=== PATIENT | female | born 1960 | race Caucasian/White ===

== ENCOUNTER → 2017-03-28 | Outpatient (CLI) | payer MEDICAID | END | disposition home or self-care (01) | LOC: YCFC.O 07:28 | PROVIDERS: ATTEND Nurse Practitioner Family | DX: Z79.899 Other long term (current) drug therapy (principal); E78.2 Mixed hyperlipidemia; I10 Essential (primary) hypertension; M06.9 Rheumatoid arthritis, unspecified; R53.83 Other fatigue ==

== ENCOUNTER 2017-04-29 14:32 | Emergency (ER) | payer MEDICAID ==
[2017-04-29 15:20] VITALS: TEMP 98.3
--- NOTE | 2017-04-29 15:42 | ED.PDOC ---
History of Present Illness - General Chief Complaint: General Stated Complaint: righ shoulder pain Time Seen by Provider: 04/29/17 15:41 Source: patient, RN notes reviewed Exam Limitations: no limitations - History of Present Illness Initial Comments: Agustina Whitlock 56 y/o female stated that she over stretch her shoulder jumping into her bed 4 days ago.Denies neck or head injury.Has sharp pain on moving up right shoulder since incident. Timing/Duration: intermittent Severity: moderate Improving Factors: immobilization Worsening Factors: movement Associated Symptoms: denies symptoms Allergies/Adverse Reactions: Allergies NO KNOWN ALLERGY Allergy (Verified 04/29/17 15:20) Home Medications: Ambulatory Orders Atenolol & Chlorthalidone [Atenolol/Chlorthalidone 50-25 mg] 1 tab PO DAILY 01/08 Azathioprine [Imuran] 50 mg PO DAILY 02/28/15 Duloxetine HCl [Cymbalta] 60 mg PO DAILY 02/28/15 Hydroxychloroquine Sulfate [Hydroxychloroquine Sulfat] 200 mg PO DAILY 02/28/15 Letrozole 2.5 mg PO DAILY 02/28/15 Sucralfate Tab [Carafate Tab] 1 gm PO QID #30 tab 02/28/15 Tramadol HCl [Ultram] 50 mg PO Q6HR PRN #15 tab 02/28/15 Methocarbamol [Robaxin] 750 mg PO BID #14 tab 04/29/17 Tramadol HCl 50 mg PO Q4HR #20 tab 04/29/17 Review of Systems - Review of Systems Constitutional: States: no symptoms reported EENTM: States: no symptoms reported Respiratory: States: no symptoms reported Cardiology: States: no symptoms reported Gastrointestinal/Abdominal: States: no symptoms reported Genitourinary: States: no symptoms reported Musculoskeletal: States: see HPI Past Medical History (General) - Patient Medical History Hx Stroke: No Hx Congestive Heart Failure: No Hx Hypertension: Yes Hx Diabetes: No Hx Cancer: Yes - Left breast CA with METs to lymph nodes Hx MRSA: No Hx Other PMH: Yes - lupus Surgical History: other - left breast lumpectomy,hysterectomy - Vaccination History Hx Tetanus, Diphtheria Vaccination: No Hx Influenza Vaccination: Yes Hx Pneumococcal Vaccination: No - Social History Hx Tobacco Use: No Hx Alcohol Use: Yes - occasional Hx Substance Use: No Hx Substance Use Treatment: No Hx Depression: No Hx Physical Abuse: No Hx Emotional Abuse: No Hx Suspected Abuse: No - Activities of Daily Living Hospice Agency (if applicable):: None Family Medical History - Family History Mother Family History: No Known Living Status: Still Living Hx Family Stroke: Yes Hx Family Cancer: No Physical Exam - Physical Exam General Appearance: Alert, Comfortable, No apparent distress Eye Exam: bilateral normal Ears, Nose, Throat: hearing grossly normal, normal ENT inspection Neck: non-tender, full range of motion Respiratory: chest non-tender, lungs clear Cardiovascular/Chest: normal peripheral pulses, regular rate, rhythm, no murmur Peripheral Pulses: radial,right: 1+, radial,left: 1+ Gastrointestinal/Abdominal: normal bowel sounds, non tender, soft Back Exam: no vertebral tenderness Extremity: other - rom limited because of pain right shoulder on hyper extension and internal rotation Departure - Departure Clinical Impression: Strain of shoulder, right Qualifiers: Encounter type: initial encounter Qualified Code(s): S46.911A - Strain of unspecified muscle, fascia and tendon at shoulder and upper arm level, right arm , initial encounter Time of Disposition: 15:58 Disposition: Discharge to Home or Self Care Condition: Good Departure Forms: ED Discharge - Pt. Copy, Patient Portal Self Enrollment Instructions: Shoulder Sprain, DI for Shoulder Sprain Referrals: Ramila Lal NP [Family Provider] - 1-2 Weeks Prescriptions: Tramadol HCl 50 mg PO Q4HR #20 tab Methocarbamol [Robaxin] 750 mg PO BID #14 tab Home Medications: Ambulatory Orders Atenolol & Chlorthalidone [Atenolol/Chlorthalidone 50-25 mg] 1 tab PO DAILY 01/08 Azathioprine [Imuran] 50 mg PO DAILY 02/28/15 Duloxetine HCl [Cymbalta] 60 mg PO DAILY 02/28/15 Hydroxychloroquine Sulfate [Hydroxychloroquine Sulfat] 200 mg PO DAILY 02/28/15 Letrozole 2.5 mg PO DAILY 02/28/15 Sucralfate Tab [Carafate Tab] 1 gm PO QID #30 tab 02/28/15 Tramadol HCl [Ultram] 50 mg PO Q6HR PRN #15 tab 02/28/15 Methocarbamol [Robaxin] 750 mg PO BID #14 tab 04/29/17 Tramadol HCl 50 mg PO Q4HR #20 tab 04/29/17 Additional Instructions: Follow up with primary md in one week call for appointment
[2017-04-29] MEDS ORDERED: ORPHENADRINE CITRATE 30 MG/ML AMP IM PRN (16:03)
[2017-04-29] MEDS ORDERED: KETOROLAC TROMETHAMINE INJ 30 MG/ML VIAL IM ONE (16:03)
[2017-04-29 16:41] VITALS: BP 128/84; O2SAT 95
== END 2017-04-29 16:41 | disposition home or self-care (01) ==
LOC: ER 14:32
DX: S46.911A Strain of unspecified muscle, fascia and tendon at shoulder and upper arm level, right arm, initial encounter (principal); I10 Essential (primary) hypertension; Z85.3 Personal history of malignant neoplasm of breast; Z85.89 Personal history of malignant neoplasm of other organs and systems
CPT/HCPCS: J1885; J2360

== ENCOUNTER → 2017-05-30 | Outpatient (CLI) | payer MEDICAID ==
--- NOTE | 2017-05-31 15:12 | RAD ---
EXAM DESCRIPTION: Shoulder,Right 2 or More Views CLINICAL HISTORY: 56 years,Female,PAIN IN RIGHT SHOULDER COMPARISON: None FINDINGS: The right shoulder demonstrates no evidence of fractures or dislocations or acute abnormalities. The acromial clavicular joint large superior place osteophyte. The included lung do are unremarkable. There is no significant lateral down sloping of the acromion with no significant narrowing of the supraspinatus outlet. Some subchondral sclerosis demonstrated on the lateral humeral head IMPRESSION: No significant narrowing of the supraspinatus outlet of the right shoulder but there is subchondral sclerosis laterally which can be seen in chronic impingement. Moderate right AC joint arthritis with a large superior osteophyte Electronically signed by: Kulwinder Medina MD 05/31/2017 3:11 PM CDT
== END | disposition home or self-care (01) ==
LOC: RAD 08:06
PROVIDERS: ATTEND Orthopaedic Surgery
DX: M25.511 Pain in right shoulder (principal)

== ENCOUNTER → 2017-10-03 | Outpatient (CLI) | payer OTHER | LOC: YCFC.O 13:45 | PROVIDERS: ATTEND Nurse Practitioner Family | DX: I10 Essential (primary) hypertension (principal); E78.2 Mixed hyperlipidemia ==

== ENCOUNTER → 2017-10-09 | Outpatient (CLI) | payer OTHER ==
--- NOTE | 2017-10-09 13:58 | RAD ---
EXAM DESCRIPTION: Chest,2 Views CLINICAL HISTORY: ATYPICAL CHEST PAIN COMPARISON: January 07, 2013 FINDINGS: Two-view chest x-ray shows cardiomediastinal silhouette and pulmonary vasculature to be within normal limits. The lungs are normally aerated and clear. Costophrenic angles are sharp. Mild disc degenerative changes of the spine are seen. Surgical clips in the left axilla are again noted. IMPRESSION: No radiographic evidence of acute cardiopulmonary disease. Electronically signed by: Raymond Boston MD 10/09/2017 1:58 PM [facility]
== END ==
LOC: YCFC.O 13:18
PROVIDERS: ATTEND Nurse Practitioner Family
DX: R07.89 Other chest pain (principal)

== ENCOUNTER → 2017-12-21 | Outpatient (CLI) | payer OTHER ==
--- NOTE | 2017-12-22 12:07 | RAD ---
EXAM DESCRIPTION: Chest,2 Views CLINICAL HISTORY: RHEUMATOID ARTHRITIS COMPARISON: Previous study October 09, 2017 TECHNIQUE: PA/lateral FINDINGS: There is no acute appearing cardiac or pulmonary abnormality. Heart size is normal with normal pulmonary vascularity. No pleural effusion or pneumothorax. Lungs are clear with no consolidating infiltrate. Lateral view shows intact sternum and mild spurring in the T-spine. IMPRESSION: No acute process is identified in the chest. Electronically signed by: Jacob Morales MD 12/22/2017 12:05 PM CDT
--- NOTE | 2017-12-22 12:09 | RAD ---
EXAM DESCRIPTION: Foot,Right 3 Views CLINICAL HISTORY: 57 years, Female, RHEUMATOID ARTHRITIS COMPARISON: None TECHNIQUE: AP, lateral, and oblique views of the right foot FINDINGS: Metatarsus primus varus is noted with hallux valgus and advanced degenerative changes of the first metatarsal phalangeal joint. Mildly widened space between the bases of first and second metatarsals is noted with degenerative changes at the first metatarsal cuneiform joint. Osseous bunion deformity is noted. Cystic changes seen in the lateral aspect of the base of the proximal phalanx of the second digit, most likely benign. Lateral view shows intact talus and calcaneus. Prominent plantar calcaneal spur is present. There is no other bone, joint, or soft tissue abnormality observed. There is no radiopaque foreign body. IMPRESSION: Degenerative changes as described. Electronically signed by: Jacob Morales MD 12/22/2017 12:08 PM CDT
--- NOTE | 2017-12-22 12:11 | RAD ---
EXAM DESCRIPTION: Foot,Left 3 Views CLINICAL HISTORY: 57 years, Female, RHEUMATOID ARTHRITIS COMPARISON: None TECHNIQUE: AP, lateral, and oblique views of the left foot FINDINGS: Mild degenerative narrowing of the first metatarsal phalangeal joint is noted with whiskering periostitis of the base of the proximal phalanx of the great toe. No midfoot malalignment. Mildly prominent trabecular pattern. Lateral view shows intact talus and calcaneus. Mild degenerative spurring of the dorsal midfoot. Prominent plantar calcaneal enthesophyte. There is no radiopaque foreign body. IMPRESSION: Degenerative changes as described. Electronically signed by: Jacob Morales MD 12/22/2017 12:09 PM CDT
--- NOTE | 2017-12-22 12:12 | RAD ---
EXAM DESCRIPTION: Hand,Left 3 Views CLINICAL HISTORY: RHEUMATOID ARTHRITIS COMPARISON: None Available. TECHNIQUE: AP, LATERAL, AND OBLIQUE FINDINGS: Three-view left hand shows no fracture or dislocation. There is no bone lesion. Degenerative narrowing of the DIP joints of the fingers is noted especially second and fifth digits. Degenerative change at the interphalangeal joint of the thumb also noted. Small periarticular erosions are present. There is no radiopaque foreign body. IMPRESSION: Degenerative arthritic changes as described. Electronically signed by: Jacob Morales MD 12/22/2017 12:11 PM CDT
--- NOTE | 2017-12-22 12:13 | RAD ---
EXAM DESCRIPTION: Hand,Right 3 Views CLINICAL HISTORY: RHEUMATOID ARTHRITIS COMPARISON: None Available. TECHNIQUE: AP, LATERAL, AND OBLIQUE FINDINGS: Three-view right hand shows no fracture or dislocation. There is no bone lesion. Degenerative narrowing of the DIP joints of the fingers is seen with small periarticular erosions at the DIP joint of the index finger and PIP joint of the middle digit. This can be seen with gout. Advanced degenerative narrowing of the third intercarpal phalangeal joint is present. Degenerative changes are seen of the first metacarpal phalangeal joint and interphalangeal joint of the thumb. There is no radiopaque foreign body. IMPRESSION: Arthritic changes as described. Electronically signed by: Jacob Morales MD 12/22/2017 12:12 PM CDT
--- NOTE | 2017-12-22 12:15 | RAD ---
EXAM DESCRIPTION: Sacroiliac Joints CLINICAL HISTORY: 57 years Female, RHEUMATOID ARTHRITIS COMPARISON: None. TECHNIQUE: Frontal and oblique views of the SI joints FINDINGS: Oblique views show minimal degenerative sclerotic changes at the acromioclavicular joints. No joint space narrowing or erosions of the adjacent bone. Degenerative changes are seen at the pubic symphysis. Marked degenerative changes in the lower L-spine. Frontal view shows no evidence of sacral fracture. Facet degenerative changes are prominent at L5-S1. Sclerosis of the right SI joint is slightly greater than the left side. IMPRESSION: Degenerative changes at the SI joints and lower L-spine. Electronically signed by: Jacob Morales MD 12/22/2017 12:13 PM CDT
== END ==
LOC: RAD 15:28
PROVIDERS: ATTEND Nurse Practitioner Family
DX: M06.9 Rheumatoid arthritis, unspecified (principal)

== ENCOUNTER → 2018-05-01 | Outpatient (CLI) | payer OTHER | LOC: YCFC.O 08:16 | PROVIDERS: ATTEND Nurse Practitioner Family | DX: E78.2 Mixed hyperlipidemia (principal) ==

== ENCOUNTER 2018-06-05 08:26 | Emergency (ER) | payer OTHER ==
[2018-06-05 08:43] VITALS: TEMP 97.4
--- NOTE | 2018-06-05 08:54 | ED.PDOC ---
History of Present Illness - General Chief Complaint: Lower Extremity Injury Stated Complaint: S/P fall,right great toe injury Time Seen by Provider: 06/05/18 08:51 Source: patient Exam Limitations: no limitations - History of Present Illness Initial Comments: PT REPORTS PAIN TO THE RIGHT GREAT TOE AFTER TRIPPING AND FALLING YESTERDAY EVENING. PT REPORTS SHE IS HAVING DIFFICULTY AMBULATING DUE TO PAIN. Occurred: yesterday Pain - Lower Extremity: moderate: Right Foot Method of Injury: fell Improving Factors: immobilization Worsening Factors: movement Allergies/Adverse Reactions: Allergies NO KNOWN ALLERGY Allergy (Verified 04/29/17 15:20) Home Medications: Ambulatory Orders Atenolol & Chlorthalidone [Atenolol/Chlorthalidone 50-25 mg] 1 tab PO DAILY 01/08 Hydroxychloroquine Sulfate [Hydroxychloroquine Sulfat] 200 mg PO DAILY 02/28/15 Letrozole 2.5 mg PO DAILY 02/28/15 Bupropion HCl [Bupropion HCl Sr] 150 mg PO BID 06/05/18 Fenofibrate [Fenofibrate] 120 mg PO DAILY 06/05/18 Tramadol-Acetaminophen [Ultracet] 1 - 2 tab PO Q6HR PRN #30 tab 06/05/18 Review of Systems - Review of Systems Constitutional: Denies: chills, fever Cardiology: Denies: chest pain, palpitations, syncope Musculoskeletal: States: joint pain. Denies: muscle stiffness Neurological: Denies: headache, numbness Past Medical History (General) - Patient Medical History Hx Stroke: No Hx Congestive Heart Failure: No Hx Hypertension: Yes Hx Diabetes: No Hx Cancer: Yes - Breast Hx MRSA: No - Vaccination History Hx Tetanus, Diphtheria Vaccination: No Hx Influenza Vaccination: Yes Hx Pneumococcal Vaccination: No - Social History Hx Tobacco Use: Yes Hx Alcohol Use: Yes - occasional Hx Substance Use: No Hx Substance Use Treatment: No Hx Depression: No Hx Physical Abuse: No Hx Emotional Abuse: No Hx Suspected Abuse: No Family Medical History - Family History Mother Family History: No Known Living Status: Still Living Hx Family Stroke: Yes Hx Family Cancer: No Physical Exam - Physical Exam General Appearance: Alert, No apparent distress, Well Developed, Well Groomed, Well Hydrated Eyes, Ears, Nose, Throat: normal ENT inspection Neck: non-tender, normal inspection Cardiovascular/Respiratory: no respiratory distress Back: normal inspection Thigh/Hip: non-tender, no evidence of injury Leg: non-tender, no evidence of injury Knee: non-tender, no evidence of injury Ankle: non-tender, no evidence of injury Foot: bone tenderness - TO THE DISTAL GREAT TOE, ecchymosis - TO THE DISTAL GREAT TOE, soft tissue tenderness - TO THE DISTAL GREAT TOE Neuro/Tendon: normal sensation, normal motor functions Mental Status: alert, oriented x 3 Skin: normal color, warm/dry Progress - EKG/XRAY/CT XRAY: R FOOT- NO ACUTE FX, DISLOCATION Departure - Departure Clinical Impression: Contusion of right great toe without damage to nail, Sprain of great toe of right foot Time of Disposition: 09:23 Disposition: Discharge to Home or Self Care Condition: Good Departure Forms: ED Discharge - Pt. Copy, Patient Portal Self Enrollment Instructions: Toe Injury (DC) Referrals: Porsche Bojorquez, [employer] [Primary Care Provider] - 1 Week Prescriptions: Tramadol-Acetaminophen [Ultracet] 1 - 2 tab PO Q6HR PRN #30 tab PRN Reason: Pain Home Medications: Ambulatory Orders Atenolol & Chlorthalidone [Atenolol/Chlorthalidone 50-25 mg] 1 tab PO DAILY 01/08 Hydroxychloroquine Sulfate [Hydroxychloroquine Sulfat] 200 mg PO DAILY 02/28/15 Letrozole 2.5 mg PO DAILY 02/28/15 Bupropion HCl [Bupropion HCl Sr] 150 mg PO BID 06/05/18 Fenofibrate [Fenofibrate] 120 mg PO DAILY 06/05/18 Tramadol-Acetaminophen [Ultracet] 1 - 2 tab PO Q6HR PRN #30 tab 06/05/18
[2018-06-05] MEDS ORDERED: IBUPROFEN 200 MG TAB PO ONE (08:55)
[2018-06-05] MEDS ORDERED: traMADol 37.5MG/APAP 325MG 1 EA TAB PO ONE (08:56)
--- NOTE | 2018-06-05 09:08 | RAD ---
EXAM DESCRIPTION: Toes,Right CLINICAL HISTORY: pain,bruising COMPARISON: None IMPRESSION: 3 views of the right great toe. No fracture, dislocation or aggressive bone lesion is present. Hallux valgus is present 30 degrees angulation. Metatarsus primus varus 16 degrees. No erosions. No pathologic calcifications. No advanced osteoarthritis. Electronically signed by: Alfie Sun MD 06/05/2018 9:07 AM CDT
[2018-06-05 11:05] VITALS: BP 168/89; O2SAT 99
== END 2018-06-05 09:36 | disposition home or self-care (01) ==
LOC: ER 08:26
DX: S93.501A Unspecified sprain of right great toe, initial encounter (principal); I10 Essential (primary) hypertension; Z87.891 Personal history of nicotine dependence; Z85.3 Personal history of malignant neoplasm of breast; Z79.899 Other long term (current) drug therapy; W01.0XXA Fall on same level from slipping, tripping and stumbling without subsequent striking against object, initial encounter; Y92.9 Unspecified place or not applicable

== ENCOUNTER → 2018-07-17 | Outpatient (CLI) | payer OTHER ==
--- NOTE | 2018-07-21 15:24 | RAD ---
EXAM DESCRIPTION: Hand, left 3 Views: YASMEEN/ CLINICAL HISTORY: 57 years Female, M06.9 COMPARISON: Radiographs of the right hand on this visit and radiographs of the left hand 12/21/2017. TECHNIQUE/FINDINGS: 3 views AP lateral and oblique left hand. Decreased bone density. Minimal narrowing of the DIP joints of the fingers and DIP joint of the thumb. Small bone densities abutting some of the joint margins, also on the ulnar aspect of the index MCP joint. Stable since the prior study. No significant joint effusion. Minimal narrowing of the left radial scaphoid joint is stable. 3 mm negative ulnar variance, not well seen on the prior study. No abnormal radiodense objects in the soft tissues or joint spaces.. IMPRESSION: Minimal arthrosis in the DIP joints of the left fingers and the IP joint of the thumb. Also left index MCP joint. Decreased bone density. Minimal narrowing of the left radial scaphoid joint. Stable since the prior study. Electronically signed by: Tylor Hill MD 07/21/2018 3:23 PM [facility]
--- NOTE | 2018-07-21 15:36 | RAD ---
EXAM DESCRIPTION: Hand, right 3 Views: YASMEEN/ CLINICAL HISTORY: 57 years Female, M06.9 COMPARISON: Radiographs of the right wrist and hand 12/21/2017. Radiographs of the left wrist and hand on this visit. TECHNIQUE/FINDINGS: AP lateral and oblique images right wrist and hand. Intimal loss of bone density. Narrowing of the DIP joints of the right fingers in the IP joint of the thumb. Marginal spurs in the PIP joints of the right index and right middle finger. Joint effusion in the PIP joints and the MCP joints. Volar subluxation of the index finger and middle finger at the MCP joint. Joint space narrowing of the ring finger and little finger MCP joints and joint space narrowing and spur formation at the thumb MCP joint. There may be minimal narrowing of the carpometacarpal joints. IMPRESSION: Minimal loss of bone density in the right hand. Minimal to moderate arthrosis in the fingers with joint effusions or in the MCP joints compared to the DIP joints. Volar subluxation of the proximal phalanges at some of the metacarpophalangeal joints. No significant change compared to prior study in November 2017. Electronically signed by: Tylor Hill MD 07/21/2018 3:34 PM [facility]
--- NOTE | 2018-07-21 15:39 | RAD ---
EXAM DESCRIPTION: Hip,Left 2 Views: CR/DR/XR CLINICAL HISTORY: 57 years Female M06.9 COMPARISON: Radiographs of the contralateral right hip. TECHNIQUE: Two Views. FINDINGS: AP neutral and oblique images show joint space is symmetric. Normal bone density. No fracture or dislocation. No abnormal radiodense objects in the soft tissues or joint spaces. Minimal joint effusion. IMPRESSION: Minimal joint effusion left hip. No evidence of acute pulmonary or joint margin abnormality. Electronically signed by: Tylor Hill MD 07/21/2018 3:38 PM [facility]
--- NOTE | 2018-07-21 15:42 | RAD ---
EXAM DESCRIPTION: Hip, right 2 Views: CR/DR/XR CLINICAL HISTORY: 57 years Female M06.9 COMPARISON: Radiographs of the left hip and radiograph of the pelvis on the same visit. TECHNIQUE: Two Views. FINDINGS: AP neutral and oblique right hip. Joint space is preserved. No fracture or dislocation. Normal bone density. Basilar calcifications in the pelvis. No abnormal radiodense objects in the soft tissues or joint spaces. IMPRESSION: No radiographic evidence of acute bony or joint margin abnormality in the right hip. Electronically signed by: Tylor Hill MD 07/21/2018 3:41 PM [facility]
--- NOTE | 2018-07-21 16:13 | RAD ---
EXAM DESCRIPTION: Pelvis: CR/DR/XR CLINICAL HISTORY: M06.9 COMPARISON: SI joint and pelvis radiographs 12/21/2017. Bilateral hip radiographs on this visit. TECHNIQUE: One view AP FINDINGS: No fracture dislocation. Bone density heterogeneous. . Joints are symmetric. No abnormal radiodense objects in the soft tissues or joint spaces. IMPRESSION: No radiographic evidence of acute bony or joint margin abnormality. No significant arthrosis. Stable since prior AP pelvis in November 2017 Electronically signed by: Tylor Hill MD 07/21/2018 4:11 PM [facility]
--- NOTE | 2018-07-21 16:22 | RAD ---
EXAM DESCRIPTION: Foot,Right 3 Views: YASMEEN/ CLINICAL HISTORY: 57 years Female M06.9 COMPARISON: Radiographs of the right foot 12/21/2017. Radiographs of the left foot on this visit. TECHNIQUE: 3 VIEWS right foot. FINDINGS: AP lateral and oblique views. Moderate hallux valgus. Narrowing of the metacarpophalangeal joint space. Joint effusion. IP joint erosions on the great toe with soft tissue swelling/effusion. Minimal narrowing of the first tarsometatarsal joint. Stable soft tissue swelling on the lateral aspect of the fifth MTP joint. IMPRESSION: Moderate hallux valgus right foot with degenerative changes in the joint space. Arthrosis also in the great toe IP joint which has progressed since the prior study. No acute bony or joint margin abnormality right foot. Electronically signed by: Tylor Hill MD 07/21/2018 4:21 PM [facility]
--- NOTE | 2018-07-21 16:26 | RAD ---
EXAM DESCRIPTION: Foot,Left 3 Views: YASMEEN/ CLINICAL HISTORY: 57 years Female M06.9 COMPARISON: Radiographs of the left foot 12/21/2017. Radiographs of the right foot on this visit. TECHNIQUE: 3 VIEWS left foot. FINDINGS: AP lateral and oblique. No left hallux valgus, but small erosions and marginal spurs on the MTP joint. Minimal soft tissue swelling abutting this joint in the fifth MTP joint. Minimal narrowing of the first and fifth tarsometatarsal joints. 3 mm plantar calcaneal spur. Subtalar joints are unremarkable. IMPRESSION: No hallux valgus left, but mild arthrosis in the joint space. Minimal soft tissue swelling abutting the first and the fifth MTP joints. No acute bony or joint margin abnormality. Electronically signed by: Tylor Hill MD 07/21/2018 4:25 PM [facility]
== END ==
LOC: LAB.O 09:39
PROVIDERS: ATTEND Nurse Practitioner Family
DX: M06.9 Rheumatoid arthritis, unspecified (principal); M25.452 Effusion, left hip; M25.441 Effusion, right hand; S63.280A Dislocation of proximal interphalangeal joint of right index finger, initial encounter; S63.282A Dislocation of proximal interphalangeal joint of right middle finger, initial encounter

== ENCOUNTER 2019-02-10 11:37 | Emergency (ER) | payer OTHER ==
[2019-02-10] MEDS ORDERED: ALPRAZolam 0.25 MG TAB PO ONE (11:59)
[2019-02-10] MEDS ORDERED: ACETAMINOPHEN-CAFF-BUTALBITAL 1 EA TAB PO ONE (11:59)
--- NOTE | 2019-02-10 12:03 | ED.PDOC ---
History of Present Illness - General Chief Complaint: Blood Pressure Problem Stated Complaint: HIGH BLOOD PRESSURE Time Seen by Provider: 02/10/19 11:41 Source: patient Exam Limitations: no limitations - History of Present Illness Initial Comments: The patient is a 58-year-old female presenting to the emergency room secondary togetting mad this morning at work and having what appears to be an anxiety attack. She is concerned about her blood pressure which is only moderately elevated. She does now have a headache. No focal neurological changes. She is alert and oriented. She is obviously still very worked up. Timing/Duration: 4-6 hours Severity: moderate Improving Factors: nothing Worsening Factors: nothing Associated Symptoms: headaches Allergies/Adverse Reactions: Allergies NO KNOWN ALLERGY Allergy (Verified 04/29/17 15:20) Home Medications: Ambulatory Orders Hydroxychloroquine Sulfate [Hydroxychloroquine Sulfat] 200 mg PO DAILY 02/28/15 Letrozole 2.5 mg PO DAILY 02/28/15 Citalopram Hydrobromide [Citalopram] 20 mg PO DAILY 02/10/19 Simvastatin 20 mg PO DAILY 02/10/19 Review of Systems - Review of Systems Constitutional: States: no symptoms reported EENTM: States: no symptoms reported Respiratory: States: no symptoms reported Cardiology: States: no symptoms reported Gastrointestinal/Abdominal: States: no symptoms reported Genitourinary: States: no symptoms reported Musculoskeletal: States: no symptoms reported Skin: States: no symptoms reported Neurological: States: headache Endocrine: States: no symptoms reported All other Systems: No Change from Baseline Past Medical History (General) - Patient Medical History Hx Seizures: No Hx Stroke: No Hx Cardiac Disorders: No Hx Congestive Heart Failure: No Hx Hypertension: Yes Hx Diabetes: No Hx Cancer: Yes - Breast Hx MRSA: No Surgical History: other - Vaccination History Hx Tetanus, Diphtheria Vaccination: No Hx Influenza Vaccination: Yes Hx Pneumococcal Vaccination: No - Social History Hx Tobacco Use: Yes Hx Alcohol Use: Yes - occasional Hx Substance Use: No Hx Substance Use Treatment: No Hx Depression: No Hx Physical Abuse: No Hx Emotional Abuse: No Hx Suspected Abuse: No Family Medical History - Family History Mother Family History: No Known Living Status: Still Living Hx Family Stroke: Yes Hx Family Cancer: No Physical Exam - Physical Exam General Appearance: Alert, Anxious Eye Exam: bilateral normal Ears, Nose, Throat: hearing grossly normal, normal ENT inspection Neck: full range of motion, supple Respiratory: lungs clear, normal breath sounds, no respiratory distress, no accessory muscle use Cardiovascular/Chest: normal peripheral pulses, regular rate, rhythm, no edema Peripheral Pulses: radial,right: 2+, radial,left: 2+, dorsalis pedis,right: 2+, dorsalis pedis,left: 2+ Gastrointestinal/Abdominal: non tender, soft Rectal Exam: deferred Back Exam: no CVA tenderness, no vertebral tenderness Extremity: non-tender, normal inspection, no pedal edema, normal capillary refill 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 Skin Exam: normal color Comments: Vital Signs - 8 hr 02/10/19 11:42 Temperature 98.0 F Pulse Rate [ 72 right brachial] Respiratory 20 Rate Blood Pressure 156/78 [right brachial ] O2 Sat by Pulse 99 Oximetry Progress - Progress Progress: 02/10/19 12:06 the patient is a 58-year-old female presenting to the emergency room due to concern over blood pressures which are only moderately elevated at this point. She can follow them over the next couple of days to make sure they return back down to normal. The patient was given a dose of medication for anxiety and for her tension headache. she needs to keep herself well hydrated. Keep routine follow-up with primary care doctor. ER warnings were given. Departure - Departure Clinical Impression: Anxiety, Tension headache Disposition: Discharge to Home or Self Care Condition: Fair Departure Forms: ED Discharge - Pt. Copy, Patient Portal Self Enrollment Instructions: Tension Headache (DC), Anxiety, Adult (DC) Diet: regular diet Activity: increase activity as tolerated Referrals: Porsche Bojorquez NP [Primary Care Provider] - 1-2 Weeks Home Medications: Ambulatory Orders Hydroxychloroquine Sulfate [Hydroxychloroquine Sulfat] 200 mg PO DAILY 02/28/15 Letrozole 2.5 mg PO DAILY 02/28/15 Citalopram Hydrobromide [Citalopram] 20 mg PO DAILY 02/10/19 Simvastatin 20 mg PO DAILY 02/10/19 Additional Instructions: the patient is a 58-year-old female presenting to the emergency room due to concern over blood pressures which are only moderately elevated at this point. She can follow them over the next couple of days to make sure they return back down to normal. The patient was given a dose of medication for anxiety and for her tension headache. she needs to keep herself well hydrated. Keep routine follow-up with primary care doctor. ER warnings were given.
[2019-02-10] MEDS ORDERED: ALPRAZolam 0.5 MG TAB ONE (12:04)
[2019-02-10 12:24] VITALS: BP 142/76; TEMP 97.3; O2SAT 100
== END 2019-02-10 12:25 | disposition home or self-care (01) ==
LOC: ER 11:37
DX: F41.9 Anxiety disorder, unspecified (principal); G44.209 Tension-type headache, unspecified, not intractable; I10 Essential (primary) hypertension; Z85.3 Personal history of malignant neoplasm of breast; Z87.891 Personal history of nicotine dependence; Z79.899 Other long term (current) drug therapy

== ENCOUNTER → 2019-03-07 | Outpatient (CLI) | payer OTHER ==
--- NOTE | 2019-03-10 12:15 | MAM ---
EXAM DESCRIPTION: 3D Screening BILATERAL : Digital Mammography. CLINICAL HISTORY: 58 years Female ANNUAL SCREENING . Personal history of breast cancer left breast 2008 with lumpectomy and radiation. No family history of breast cancer. No childbirth. Postmenopausal. No HRT. Sabianist inheritance.. Lifetime risk of developing breast cancer (Tyrer-Cuzick model)(%): Not calculated due to personal history of breast cancer. COMPARISON: 2-D digital screening bilateral mammography 11/10/2015. TECHNIQUE: Bilateral CC and MLO projection full-field images, digital tomosynthesis mammographic technique. Bilateral digital 2-D full-field MLO images. CAD not available for tomosynthesis or 2-D images. FINDINGS: The breast parenchymal density pattern is: Scattered areas of fibroglandular density. No skin thickening or nipple retraction. Architectural distortion in the posterior third of the upper outer quadrant of the right breast at previous site of cancer, lumpectomy and treatment. The soft tissue density at the center of the distortion has decreased in size since the prior study. No new focal, stellate mass or density, focal asymmetry , and no suspicious microcalcifications bilaterally. Stable mammograms compared to prior study. Taking into account, differences in mammographic technique. IMPRESSION: Benign exam. BIRAD CATEGORY: 2 BENIGN FINDINGS. RECOMMENDATIONS: FOLLOW UP: Routine digital bilateral mammographic screening, one year interval from February 2019. Written communication explaining the IMPRESSION and follow-up, will be mailed to the patient and referring health care provider. According to the [employer], yearly mammograms are recommended starting at age 40 and continuing as long as a woman is in good health. Any breast change noted on a breast self-exam should be reported promptly to the patient's healthcare provider. Breast MRI is recommended for women with an approximately 20-25% or greater lifetime risk of breast cancer, including women with a strong family history of breast or ovarian cancer and women who have been treated for Hodgkin's disease. A negative mammographic report should not delay tissue diagnosis in patients with significant clinical history or physical findings. Extremely dense breast tissue limits the sensitivity of digital mammography. Electronically signed by: Tylor Hill MD 03/10/2019 12:13 PM CDT
== END ==
LOC: MAMMO 09:30
PROVIDERS: ATTEND Internal Medicine Hematology & Oncology
DX: Z12.31 Encounter for screening mammogram for malignant neoplasm of breast (principal)

== ENCOUNTER → 2019-09-03 | Outpatient (CLI) | payer OTHER ==
--- NOTE | 2019-09-04 17:08 | MAM ---
EXAM DESCRIPTION: 3D Diagnostic, Bilateral: Digital Mammography CLINICAL HISTORY: 58 yearsFemale left breast cancer. 2008. No complaints. No family history of breast cancer. Menarche age 9. Childbirth. Menopausal age 48.. Lifetime risk of developing breast cancer (Tyrer-Cuzick model) percentage is not calculated due to personal history of breast cancer. COMPARISON: Bilateral screening digital breast tomosynthesis February 2019. TECHNIQUE: Bilateral CC and LM projection full-field images, digital mammographic tomosynthesis technique. Bilateral 2-D digital full-field MLO images. CC and LM projections. CAD not available. FINDINGS: The breast parenchymal density pattern is: Scattered areas of fibroglandular density. No skin thickening or nipple retraction potential distortion upper outer quadrant posterior third left breast associated with previous malignancy and treatment site. Mole marker and skin marker for biopsy site scar. No new focal, stellate mass or density, focal asymmetry , and no suspicious microcalcifications bilaterally. Stable mammograms compared to prior study, taking into account differences in mammographic technique IMPRESSION: Benign exam. BIRAD CATEGORY: 2 BENIGN FINDINGS. RECOMMENDATIONS: FOLLOW UP: Return to digital bilateral mammographic screening, after February 2019. Written communication explaining the IMPRESSION and follow-up, will be mailed to the patient and referring health care provider According to the [employer], yearly mammograms are recommended starting at age 40 and continuing as long as a woman is in good health. Any breast change noted on a breast self-exam should be reported promptly to the patient's healthcare provider. Breast MRI is recommended for women with an approximately 20-25% or greater lifetime risk of breast cancer, including women with a strong family history of breast or ovarian cancer and women who have been treated for Hodgkin's disease. A negative mammographic report should not delay tissue diagnosis in patients with significant clinical history or physical findings. Extremely dense breast tissue limits the sensitivity of digital mammography. Electronically signed by: Tylor Hill MD 09/04/2019 5:06 PM ORTHOPEDIC PHYSICIAN
== END ==
LOC: MAMMO 08:00
PROVIDERS: ATTEND Internal Medicine Hematology & Oncology
DX: C50.412 Malignant neoplasm of upper-outer quadrant of left female breast (principal)
CPT/HCPCS: 77066; G0279

== ENCOUNTER 2019-10-04 15:46 | Observation (INO) | payer OTHER ==
[2019-10-04] MEDS ORDERED: SODIUM CHLORIDE 0.9% (FLUSH) 10 ML SYG IV PRN (16:13)
[2019-10-04] MEDS ORDERED: ONDANSETRON INJ 4 MG/2 ML VIAL IV ONE (16:13)
[2019-10-04] MEDS ORDERED: MORPHINE SULFATE INJ 10 MG/ML VIAL IV ONE ×2 (16:13→17:31)
[2019-10-04] MEDS ORDERED: NITROGLYCERIN 2% 1 GM UD TOP ONE (16:15)
--- NOTE | 2019-10-04 16:48 | ED.PDOC ---
History of Present Illness - General Chief Complaint: Blood Pressure Problem Stated Complaint: high BP, and chest throbbing Time Seen by Provider: 10/04/19 16:13 Source: patient, RN notes reviewed, Vital Signs reviewed Exam Limitations: no limitations - History of Present Illness Initial Comments: Patient is a 59-year-old white female who presents with complaints of chest pressure. Her initial episode of this was 2 days ago. She was at work at the time and noted this onset of dull aching pressure in the left chest wall. There was no radiation. She became nauseated and diaphoretic. It resolved after approximately an hour but she did not feel back to her normal self for approximately 3 hours from onset. Today she was at work at the [employer] and noted onset of the same pressure-like pain. It was 5 out of 10. Lasted for approximately 2 to 3 minutes and resolved with rest. She has had multiple episodes of this, approximately 20, in the last 4 hours. Exertion seems to bring the pain on. The chest pain today did not radiate. It was moderate in intensity. Is recurrent and intermittent. Improves with rest. Today she has no nausea or diaphoresis. Timing/Duration: 4-6 hours Severity: moderate Location: substernal Activities at Onset: activity - Working at the [employer] Prior Chest Pain/Cardiac Workup: no prior cardiac workup Improving Factors: rest Worsening Factors: movement Nitro Today/Relief: no nitro taken today Aspirin Treatment Today: 325 mg x 1, provided at home Associated Symptoms: chest pain, diaphoresis, malaise, nausea/vomiting, weakness Allergies/Adverse Reactions: Allergies NO KNOWN ALLERGY Allergy (Verified 04/29/17 15:20) Home Medications: Ambulatory Orders Hydroxychloroquine Sulfate [Hydroxychloroquine Sulfat] 200 mg PO DAILY 02/28/15 Letrozole 2.5 mg PO DAILY 02/28/15 Citalopram Hydrobromide [Citalopram] 20 mg PO DAILY 02/10/19 Simvastatin 20 mg PO DAILY 02/10/19 Review of Systems - Review of Systems Constitutional: States: no symptoms reported, see HPI EENTM: States: no symptoms reported Respiratory: States: no symptoms reported, see HPI - No shortness of breath today. Cardiology: States: chest pain. Denies: palpitations, syncope Gastrointestinal/Abdominal: States: see HPI - No nausea or vomiting today. Additionally patient had no diaphoresis today. Genitourinary: States: no symptoms reported Musculoskeletal: States: no symptoms reported Skin: States: no symptoms reported Neurological: States: no symptoms reported Endocrine: States: no symptoms reported Hematologic/Lymphatic: States: no symptoms reported All other Systems: Reviewed and Negative Past Medical History (General) - Patient Medical History Hx Seizures: No Hx Stroke: No Hx Dementia: No Hx Asthma: No Hx of COPD: No Hx Cardiac Disorders: No Hx Congestive Heart Failure: No Hx Pacemaker: No Hx Hypertension: Yes Hx Thyroid Disease: No Hx Diabetes: No Hx Gastroesophageal Reflux: No Hx Renal Disease: No Hx Cancer: Yes - Breast CA, now in remission for 10 years Hx of HIV: No Hx Hepatitis C: No Hx MRSA: No Hx Other PMH: Yes - Rheumatoid arthritis and Sjogren's - Vaccination History Hx Tetanus, Diphtheria Vaccination: No Hx Influenza Vaccination: Yes Hx Pneumococcal Vaccination: No Immunizations Up to Date: No - Social History Hx Tobacco Use: Yes Hx Chewing Tobacco Use: No Hx Alcohol Use: Yes - 4-5 glasses of wine daily Hx Substance Use: No Hx Substance Use Treatment: No Hx Depression: No Feels Threatened In Home Enviroment: No Feels Threatened In a Relationship: No Hx Physical Abuse: No Hx Emotional Abuse: No Hx Suspected Abuse: No - Activities of Daily Living Hospice Agency (if applicable):: None - Female History Patient is a Female of Child Bearing Age (10 -59 yrs old): No - Triage Comment ED Triage Comment: pt noted to be anxious, and flushed to upper torso Family Medical History - Family History Mother Family History: No Known Living Status: Still Living Hx Family Stroke: Yes Hx Family Cancer: No Physical Exam - Physical Exam General Appearance: Alert, Anxious, Well Developed, Well Groomed, Well Hydrated, Well Nourished Eyes, Ears, Nose, Throat Exam: PERRL/EOMI, normal ENT inspection, pharynx normal Neck: non-tender, full range of motion, supple, normal inspection Respiratory: chest non-tender, lungs clear, normal breath sounds, no respiratory distress, no accessory muscle use Cardiovascular/Chest: normal peripheral pulses, regular rate, rhythm, no edema, no gallop, no JVD, no murmur Peripheral Pulses: radial,right: 2+, radial,left: 2+ Gastrointestinal/Abdominal: normal bowel sounds, non tender, soft, no organomegaly, no pulsatile mass Extremity: normal range of motion, non-tender, normal inspection 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 10/04/19 17:25 Patient's labs have returned and they are normal. Chest x-ray is unremarkable. Patient has a nondiagnostic EKG for chest pain. Patient has a heart score equal 4. This puts her at moderate risk for undifferentiated chest pain work- up. Plan on admission for further evaluation. I have discussed this plan of care with the patient and she voices understanding and agreement. I have discussed the plan of care with the hospitalist, Ayden Franco NP, and he agrees to admit the patient as she is not having active chest pain in the second set of cardiac enzymes negative. I will order second set of cardiac enzymes and get her admitted to the hospital. 10/04/19 19:08 Repeat cardiac enzymes are negative. Plan on admission at this time. - Results/Orders Results/Orders: 10/04/19 16:13 IV Care:Saline Lock per Protoc QSHIFT Telemetry ONCE Sodium Chloride 0.9% (Flush) [Saline Flush Syringe] 3 ml IV PRN PRN Oxygen Stat 10/04/19 16:15 EKG STAT 10/05/19 09:00 Pulse Ox Daily Laboratory Results - last 24 hr 10/04/19 16:13 WBC 8.9 RBC 4.22 Hgb 13.6 Hct 40.3 MCV 95.6 MCH 32.3 H MCHC 33.8 RDW 12.8 Plt Count 280 MPV 8.2 Absolute Neuts (auto) 7.80 H Absolute Lymphs (auto) 0.70 L Absolute Monos (auto) 0.30 Absolute Eos (auto) 0.10 Absolute Basos (auto) 0.00 Neutrophils % 87.7 H Lymphocytes % 7.7 L Monocytes % 3.3 Eosinophils % 1.0 Basophils % 0.3 PT 10.6 INR 1.07 PTT (SP) 23.4 Sodium 140 Potassium 5.3 H Chloride 103 Carbon Dioxide 28 Anion Gap 14.3 BUN 16 Creatinine 0.76 BUN/Creatinine Ratio 21.1 H Random Glucose 108 H Serum Osmolality 281.1 Calcium 10.1 Magnesium 1.9 Total Bilirubin 0.6 Direct Bilirubin < 0.1 Indirect Bilirubin 0.5 AST 23 ALT 17 Alkaline Phosphatase 70 Creatine Kinase 147 H CK-MB (CK-2) 3.9 CK-MB (CK-2) % 2.65 Troponin I < 0.02 Serum Total Protein 7.2 Albumin 4.2 EKG performed on 04 October 2019 at 1551 hrs.: Normal sinus rhythm at 75 bpm, normal axis deviation, possible anterior infarct, age indeterminate, abnormal EKG. No comparison EKG available. EXAM DESCRIPTION: Chest,1 View CLINICAL HISTORY: 59 years Female chest pain COMPARISON: None. FINDINGS: The cardiomediastinal silhouette appears unremarkable. There is opacity overlying the chest from overlying soft tissue. No consolidating infiltrates or pleural effusions. No pneumothorax. IMPRESSION: No acute abnormality is identified. Electronically signed by: Adonis Soler MD 10/04/2019 4:58 PM [employer] Repeat troponin is less than 0.02. Departure - Departure Clinical Impression: Accelerated hypertension Chest pain Qualifiers: Chest pain type: unspecified Qualified Code(s): R07.9 - Chest pain, unspecified Time of Disposition: 19:10 Disposition: Admit Patient Condition: Good Referrals: Porsche Bojorquez NP [Primary Care Provider] - 1-2 Days Home Medications: Ambulatory Orders Hydroxychloroquine Sulfate [Hydroxychloroquine Sulfat] 200 mg PO DAILY 02/28/15 Letrozole 2.5 mg PO DAILY 02/28/15 Citalopram Hydrobromide [Citalopram] 20 mg PO DAILY 02/10/19 Simvastatin 20 mg PO DAILY 02/10/19 Decision To Admit - Decistion To Admit Decision to Admit Date: 10/04/19 Decision to Admit Time: 16:30
--- NOTE | 2019-10-04 17:00 | RAD ---
EXAM DESCRIPTION: Chest,1 View CLINICAL HISTORY: 59 years Female chest pain COMPARISON: None. FINDINGS: The cardiomediastinal silhouette appears unremarkable. There is opacity overlying the chest from overlying soft tissue. No consolidating infiltrates or pleural effusions. No pneumothorax. IMPRESSION: No acute abnormality is identified. 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
[2019-10-04] MEDS ORDERED: METOPROLOL TARTRATE INJ 5 MG/5 ML VIAL IV ONE (17:31)
[2019-10-04] MEDS ORDERED: ENOXAPARIN SODIUM 60 MG/0.6 ML SYG SUBCU ONE (18:02)
[2019-10-04] MEDS ORDERED: SODIUM CHLORIDE 0.9% 1000ML 1,000 ML IVS ONE (20:36)
[2019-10-04] MEDS ORDERED: ASPIRIN (ENTERIC COATED) 325 MG TAB PO ONE (21:22)
[2019-10-04] MEDS ORDERED: ALUM & MAG HYDROX-SIMETHICONE 30 ML, LIDOCAINE VISCOUS 2% 15 ML PO ONE ×2 (21:22)
[2019-10-04] MEDS ORDERED: METOPROLOL TARTRATE 25 MG TAB PO SCH (21:26)
[2019-10-04] MEDS ORDERED: MORPHINE SULFATE INJ 10 MG/ML VIAL IV PRN (21:28)
[2019-10-04] MEDS ORDERED: ACETAMINOPHEN 325 MG TAB PO PRN (21:28)
[2019-10-04] MEDS ORDERED: NITROGLYCERIN 0.4 MG 25 EA TAB SL PRN (21:28)
[2019-10-04] MEDS ORDERED: NITROGLYCERIN 0.4 MG/HR PATCH TOP SCH (21:30)
[2019-10-04] MEDS ORDERED: IV SET AND CAP CHANGE INJ INJ SCH (21:30)
[2019-10-04] MEDS ORDERED: METOPROLOL TARTRATE 25 MG TAB ONE (21:47)
[2019-10-04] MEDS ORDERED: LIDOCAINE HCL 2% (MOUTH-THROAT) 15 ML UD ONE (21:54)
[2019-10-05] MEDS ORDERED: TEMAZEPAM 15 MG CAP PO ONE (00:11)
[2019-10-05] MEDS ORDERED: PANTOPRAZOLE SODIUM IV 40 MG VIAL IV SCH (06:30)
[2019-10-05] MEDS ORDERED: SODIUM CHLORIDE 0.9% (FLUSH) 10 ML SYG IV SCH (09:00)
[2019-10-05] MEDS ORDERED: ATENOLOL 25 MG TAB PO SCH (09:00)
[2019-10-05] MEDS ORDERED: predniSONE 10 MG TAB PO SCH (09:00)
[2019-10-05] MEDS ORDERED: ASPIRIN TABLET 325 MG TAB PO SCH (09:00)
[2019-10-05] MEDS ORDERED: ASPIRIN (ENTERIC COATED) 325 MG TAB PO SCH (09:00)
[2019-10-05] MEDS ORDERED: NON-FORMULARY MEDICATION 1 EA MIS (Letrozole [Letrozole] 2.5 MG) PO SCH (09:00)
[2019-10-05] MEDS ORDERED: CITALOPRAM HBR 20 MG TAB PO SCH (09:00)
[2019-10-05 09:18] VITALS: O2SAT 97
[2019-10-05] MEDS ORDERED: REMOVE OLD PATCH TOP SCH (09:30)
[2019-10-05 09:50] VITALS: BP 154/83; TEMP 97.6
--- NOTE | 2019-10-05 14:12 | SSS ---
SUPERVISING PHYSICIAN: Bassam Law MD ADMISSION DIAGNOSES: 1. Chest pain. 2. Uncontrolled hypertension. 3. Mild electrolyte imbalance with hyperkalemia. 4. History of lupus. 5. History of rheumatoid arthritis. DISCHARGE DIAGNOSES: 1. Chest pain with no signs of acute coronary syndrome with the kidneys showing no acute ST or T-wave changes. All troponins x3 have been negative. Patient as been pain-free since admission. Etiology uncertain, requires followup as an outpatient with a stress test. Followup with cardiology. 2. Poorly controlled hypertension. 3. Hyperlipidemia previously on statin with patient being medically noncompliant. 4. Electrolyte imbalance, hyperkalemia on admission normalized and stable. 5. History of breast cancer, left, with mastectomy. 6. Chronic tobacco abuse in a current smoker. 7. History of lupus. 8. History of rheumatoid arthritis. 9. Depression. HISTORY OF PRESENT ILLNESS: Ms. Whitlock is a 59 year-old female patient who presented to the Emergency Room yesterday with complaints of left- sided chest pain. She endorses that the pain has actually been present for two days previously, started on . She denied any radiation. She does note that initially on she did have some nausea and diaphoresis that resolved and went back to her normal routine. She works at the [employer] and while at work noted she was having some pressure-like pain in her left side rating it 5/10 that lasted approximately 2 to 3 minutes and resolved with rest. She notes she has had multiple episodes that she believes is around 20 times in the last 4 hours. She does think exertion resulted in the pain and the pain goes away with rest but does not radiate. Initial laboratory studies showed she had troponins that were less than 0.2. She was given morphine in the Emergency Room and was pain-free but given the patient's risk factors and symptoms, Emergency Room physician requested the patient be placed in observation for further rule-out for concerns for acute coronary syndrome. The patient was placed in observation in stable condition. PAST MEDICAL HISTORY: 1. Hypertension. 2. Lupus. 3. Rheumatoid arthritis. 4. Hypercholesterolemia, poorly treated due to medical noncompliance. 5. Left-sided breast cancer treated with surgical excision. 6. Depression. PAST SURGICAL HISTORY: 1. Left lumpectomy for breast cancer. CURRENT MEDICATIONS: 1. Prednisolone 1 mg daily. 2. Atenolol 50 mg daily. 3. Armstrong 7.5/325, one or two p.r.n.. 4. Citalopram 20 mg daily. 5. Hydrochloroquine 200 mg daily. 6. Letrozole 2.5 mg daily. 9. Simvastatin 20 mg daily. ALLERGIES: No known drug allergies. FAMILY HISTORY: Positive for diabetes, otherwise unremarkable. SOCIAL HISTORY: Patient smokes about a half pack of cigarettes daily. She works at [email or web address]. She is single, lives in [place] and drinks wine on a rare basis. Denies any illicit drug use. REVIEW OF SYSTEMS: CONSTITUTIONAL: General malaise,denies any weakness or unintentional weight loss. HEENT: Negative for ear ache, sore throat, nasal congestion, vision changes. CHEST: Denies coughing, wheezing, does have some shortness of breath with exertion at times. HEART: As noted in history of present illness. Chest pain, denies palpations or syncopal episodes. ABDOMEN: Negative for nausea, vomiting, diarrhea, constipation or abdominal pain. GENITOURINARY: Denies dysuria, hematuria. MUSCULOSKELETAL: Denies arthralgias, joint swelling, does have a history of rheumatoid arthritis and lupus. SKIN: Negative for any unexplained lesions, moles, rashes or changes. NEUROLOGIC: Denies headaches, seizures or ataxia or other neurological deficits. HEMATOLOGIC: Denies unexplained bleeding, bruising or transfusion reaction. PHYSICAL EXAMINATION: VITAL SIGNS: Temperature 98.6, pulse 74, blood pressure 169/95, respirations 16, oxygen saturation 99% on room air. At discharge, temperature was 97.6, pulse 62, blood pressure 154/83, respirations 18, oxygen saturation 97% on room air. Admission weight was 61.8 kg. GENERAL: The patient is resting comfortably. Appears to be in no acute distress. She is alert. HEENT: Tympanic membranes are clear bilaterally. Oropharynx pink, moist without any lesions. NECK: Supple, non-tender, full range of motion. No jugular venous distention. CHEST: Lung sounds clear to auscultation bilaterally without rhonchi, rales, or wheezes. CARDIOVASCULAR: Regular rate and rhythm without appreciable murmurs, rubs, or gallops. ABDOMEN: Soft, non-tender, positive bowel sounds. EXTREMITIES: Without cyanosis, clubbing, or edema. NEUROLOGIC: Cranial nerves II through XII are grossly intact. 7.56 She is alert and oriented x 3 SKIN: [place], warm and dry. LABORATORY: CBC on admission showed white count of 8,900, hemoglobin 13.6, hematocrit 40.3, platelet count 208,000. Differential does show a slight left shift. Coagulation studies showed normal PT/PTT. Electrolytes on admission showed a slightly elevated potassium of 5.3, prior to discharge had normalized, patient 3.9, BUN 14, creatinine 0.63, calcium 9.2, magnesium normal at 1.9. Liver functions were all within normal limits. Amylase and lipase were normal. She had 3 sets of troponin less than 0.02. Lipid panel showed elevated triglycerides at 187, cholesterol 224, LDL cholesterol 139 with HDL of 58. RADIOLOGY: Chest x-ray in the Emergency Room prior to admission, single-view chest showed no acute abnormalities identified. EKG 12-lead showed normal sinus rhythm at [address] changes, no acute ST or T-wave changes noted to indicate acute ischemia or injury pattern. HOSPITAL COURSE: Ms. Whitlock was admitted for rule-out chest pain. She was closely monitored on cardiac telemetry. She did have a nitro patch in place. She had no recurrence of her chest pain. She was pain-free on admission to the medical/surgical floor. She had abnormal rhythm, that should be noted. She was found to be clinically without any acute findings to indicate acute coronary syndrome or coronary injury and was felt to be clinically well enough to continue with outpatient management and followup with Dr. Donaldson for stress test and further evaluation of chest pain. ASSESSMENT: As noted above in admission and discharge diagnoses. PLAN: The patient was again placed in observation overnight and found to be clinically stable with no recurrence of her symptoms. She was discharged on 10/[address] Donaldson and will need a stress test for further cardiac workup as well as cardiac followup. Diet: Low cholesterol, low fat diet. Activities: Increase as tolerated. No strenuous activities until cleared by Dr. Donaldson. All medications prior to hospitalization to be continued including starting her statin in the form of Simvastatin 20 mg daily which she was not taking at home as directed. Discharge medications included new prescriptions: 1. Aspirin 81 mg daily, #30, no refills. 2. Nitroglycerin 0.4 mg tablets, 1 sublingual q5 minutes p.r.n. chest pain, one bottle, no refills. 3. Simvastatin 20 mg daily. All other medications prior to hospitalization includin. Prednisone 1 mg tablet daily. 2. Atenolol 50 mg daily. 3. Armstrong 7.5/325, one or two every 6 hours as needed. 4. Citalopram 20 mg daily. 5. Hydrochloroquine 200 mg daily. 6. Letrozole 2.5 mg daily. DISPOSITION: The patient is discharged home to followup with Dr. Donaldson as noted above. Condition on discharge was stable and improved. #[id number] [facility]
== END 2019-10-05 12:50 | disposition home or self-care (01) ==
LOC: ER 15:46 → MS 19:50
PROVIDERS: ADMIT Nurse Practitioner Family; ATTEND Nurse Practitioner Family
DX: R07.89 Other chest pain (principal); I10 Essential (primary) hypertension; E78.5 Hyperlipidemia, unspecified; E87.8 Other disorders of electrolyte and fluid balance, not elsewhere classified; E87.5 Hyperkalemia; F17.210 Nicotine dependence, cigarettes, uncomplicated; M32.9 Systemic lupus erythematosus, unspecified; M06.9 Rheumatoid arthritis, unspecified; F32.9 Major depressive disorder, single episode, unspecified; R94.31 Abnormal electrocardiogram [ECG] [EKG]; M35.00 Sjogren syndrome, unspecified; Z91.14 Patient's other noncompliance with medication regimen; Z79.899 Other long term (current) drug therapy; Z85.3 Personal history of malignant neoplasm of breast; Z90.12 Acquired absence of left breast and nipple; Z83.3 Family history of diabetes mellitus; Z82.3 Family history of stroke
CPT/HCPCS: 96374; 96375 ×2; 96376; 96372; J2270 ×3; J2405; J7512; J1650; 80048 ×2; 82553 ×2; 80061; 36415 ×3; 82550 ×2; 85025; 85730; 85610; 84484 ×3; 82150; 80076; 83690; 71045; 94760; 99285; 93005; G0378

== ENCOUNTER → 2020-09-02 | Outpatient (CLI) | payer OTHER ==
--- NOTE | 2020-09-03 16:44 | MAM ---
EXAM DESCRIPTION: 3D Diagnostic, Bilateral (accession [id number]), Breast,Left (accession [id number]): Ultrasound. CLINICAL HISTORY: 59 yearsFemaleBREAST LUMP. "Pea size" Anterior medial left breast. Personal history left breast cancer upper outer quadrant posterior. Menarche age 10. No childbirth. Menopause age 48. Breast cancer risk assessment not performed due to personal history of breast cancer. COMPARISON: Bilateral screening digital breast tomosynthesis February 2019 and bilateral diagnostic digital breast tomosynthesis August 2019. TECHNIQUE: Bilateral LM, CC, and MLO projection full-field images, digital tomosynthesis technique. Bilateral 2-D digital full-field images: LM, CC, and MLO projections CAD available for 2-D images.. Transcutaneous scanning of the left breast utilizing houser-scale and Doppler modes. Scanning performed by the bakery machine mechanic supervisor ; observation by Dr. Hill. FINDINGS: The breast parenchymal density pattern is: Scattered areas of fibroglandular density. Architectural distortion upper outer quadrant posterior third left breast corresponding to prior site of breast malignancy and treatment. Skin marker at region of interest, anterior third lower inner quadrant left breast lateral to the nipple. No skin thickening or nipple retraction No new focal, stellate mass or density, focal asymmetry , and no suspicious microcalcifications in the breast bilaterally or region of interest. Stable mammograms compared to prior study, taking into account differences in mammographic technique Ultrasound: Scanning the region of interest 3 cm from the nipple at 9:00. No dominant solid mass, no distinct cysts, no fluid collection, and no large calcification. No overlying skin changes. IMPRESSION: Benign exam. BIRAD CATEGORY: 2 BENIGN FINDINGS. RECOMMENDATIONS: FOLLOW UP: Routine digital bilateral mammographic screening, one year interval from August 2020. Written communication explaining the IMPRESSION and follow-up, will be mailed to the patient and referring health care provider. The FINDINGS and the FOLLOW-UP plan were reviewed in person with the patient after the examination. According to the [employer], yearly mammograms are recommended starting at age 40 and continuing as long as a woman is in good health. Any breast change noted on a breast self-exam should be reported promptly to the patient's healthcare provider. Breast MRI is recommended for women with an approximately 20-25% or greater lifetime risk of breast cancer, including women with a strong family history of breast or ovarian cancer and women who have been treated for Hodgkin's disease. A negative mammographic report should not delay tissue diagnosis in patients with significant clinical history or physical findings. Extremely dense breast tissue limits the sensitivity of digital mammography. Electronically signed by: Tylor Hill MD 09/03/2020 4:42 PM [facility]
== END ==
LOC: MAMMO 09:54
PROVIDERS: ATTEND Internal Medicine Hematology & Oncology
DX: C50.412 Malignant neoplasm of upper-outer quadrant of left female breast (principal)
CPT/HCPCS: 76641; 77066; G0279

== ENCOUNTER → 2020-10-05 | Outpatient (CLI) | payer OTHER | LOC: YCFC.O 12:09 | PROVIDERS: ATTEND Nurse Practitioner Family | DX: Z20.828 Contact with and (suspected) exposure to other viral communicable diseases (principal) ==